=== PATIENT | male | born 1935 | race Caucasian/White ===

== ENCOUNTER → 2018-04-28 | Outpatient (CLI) | payer MEDICARE, BC ==
[~2018-04-28] MED LIST: CELEBREX 200 M200 M1; CEPHALEXIN 500500 M1; DIABETA 5MG TABL5 MG PO; LORTAB; METFORMIN HCL500 MG PO; MOBIC15 MG PO; NORCO 5-325 TA1 EACH PO; OMEPRAZOLE20 M2 PO; PRINIVIL20 MG PO; TRANSDERM-SCO1 PATC1 TD; TRANSDERM-SCOP1 EACH TRANSDERM; ZOFRAN ODT4 MG PO
== END ==
LOC: M.RAD 04-26 11:00
DX: R13.12 Dysphagia, oropharyngeal phase (principal); R05 Cough

== ENCOUNTER → 2018-05-12 | Outpatient (CLI) | payer MEDICARE, BC | LOC: M.RAD 08:50 | DX: R13.10 Dysphagia, unspecified (principal); E11.9 Type 2 diabetes mellitus without complications; R03.0 Elevated blood-pressure reading, without diagnosis of hypertension; R05 Cough ==

== ENCOUNTER → 2019-09-28 | Outpatient (CLI) | payer MEDICARE, BC | LOC: M.RAD 10:00 | DX: R13.13 Dysphagia, pharyngeal phase (principal) ==